=== PATIENT | male | born 1995 | race Caucasian/White ===

== ENCOUNTER 2017-12-19 08:44 | Emergency (ER) | payer OTHER ==
[2017-12-19 08:54] VITALS: BP 122/66
--- NOTE | 2017-12-19 09:03 | EDPHY ---
H & P Time Seen by Provider: 12/19/17 08:54 HPI/ROS: CHIEF COMPLAINT: Forehead laceration HISTORY OF PRESENT ILLNESS: 22-year-old immunocompetent male with no anticoagulant use, up-to-date tetanus, was at work at [employer] chopping wood when a piece of wood bounced back and impacted him on the frontal region. No loss of consciousness. No amnesia. No headache. No nausea or vomiting. No midline C-spine pain. No diplopia. SOCIAL HISTORY: denies alcohol use at time of incident PHYSICAL EXAM 1) GENERAL: Well-developed, well-nourished, alert and oriented. Appears to be in no acute distress. Answering questions appropriately. 2) HEAD: Normocephalic, linear, superficial, transverse 3 cm laceration. No foreign body visualized or palpated. 3) HEENT: Pupils equal, round, reactive to light bilaterally. Negative [place]. Nasopharynx, oropharynx, clear. No deformity or angulation of nose. No septal hematoma. No rhinorrhea. No oral trauma. Ears bilaterally with normal tympanic membranes. No hemotympanum. No fluid or blood in the external auditory canal. No raccoon eyes. No Ro sign. Teeth are normally aligned with no gross malocclusion, TMJ bilaterally nontender, facial bones nontender including the zygomatic arch, maxilla mandible. 4) NECK: No cervical collar is on. Posterior cervical spine is nontender, no stepoff, no effusion. Full range of motion which does not elicit any midline cervical spine pain, no posterior midline tenderness, no step-off. Smoking Status: Current every day smoker Constitutional: Initial Vital Signs Temperature (C) 36.6 C 12/19/17 08:51 Heart Rate 77 12/19/17 08:51 Respiratory Rate 16 12/19/17 08:51 Blood Pressure 122/66 H 12/19/17 08:51 O2 Sat (%) 96 12/19/17 08:51 O2 Delivery Mode Room Air Allergies/Adverse Reactions: No Known Allergies Allergy (Unverified 12/19/17 08:50) Home Medications: Medication Instructions Recorded NK [No Known Home Meds] 12/19/17 MDM/Departure - MDM Procedures: Procedure: Laceration repair with tissue adhesive Verbal consent was obtained from the patient. The 3 cm laceration on the forehead was anesthetized with 1% lidocaine with epinephrine.. The wound was scrubbed and explored to its base with a gloved finger. No foreign body seen, no foreign bodies palpated. There were no deep structures involved. The wound was repaired with tissue adhesive. The procedure was performed by myself. Patient has been informed that scarring will occur, although every effort has been made to minimize this. ED Course/Re-evaluation: Negative [place] head and C-spine decision making rules. Primary wound closure in the ER. No indication for imaging at this time. Usual and customary wound and head injury precautions instructions provided. I saw this patient independently based on established practice protocols. Care of patient under supervision of primary Supervising physician Dr Justin Olvera . - Depart Disposition: Home, Routine, Self-Care Clinical Impression: Head injury due to trauma Qualifiers: Encounter type: initial encounter Qualified Code(s): S09.90XA - Unspecified injury of head, initial encounter Laceration of forehead Qualifiers: Encounter type: initial encounter Qualified Code(s): S01.81XA - Laceration without foreign body of other part of head, initial encounter Condition: Good Instructions: Laceration (ED), Skin Adhesive Care (ED) Additional Instructions: Return to the ER if you develop redness, swelling, discharge, warmth to the wound, , or any other symptoms that concern you. ALTHOUGH THERE IS NO EVIDENCE OF SERIOUS HEAD INJURY AT THIS TIME, DELAYED SIGNS CAN APPEAR 24 TO 48 HOURS AFTER INJURY. PLEASE RETURN TO THE EMERGENCY DEPARTMENT (ED) IMMEDIATELY IF YOU HAVE INCREASED HEADACHE, PERSISTENT HEADACHE , VOMITING, WEAKNESS, CONFUSION OR VISUAL PROBLEMS. WE RECOMMEND THAT YOU DO NOT RESUME CONTACT SPORTS OR ACTIVITIES THAT TAKE COORDINATION OR BALANCE SUCH SKIING OR RIDING A BICYCLE UNTIL CLEARED TO DO SO BY YOUR DOCTOR OR BY A NEUROLOGIST. Stand Alone Forms: Work Comp Follow Up Referrals: Follow-up, with your work comp provider in 2 days [Other] - As per Instructions
[2017-12-19] MEDS ORDERED: SKIN ADHESIVE (DERMABOND) 1 EACH TP ONE (09:16)
== END 2017-12-19 09:37 | disposition home or self-care (01) ==
PROC: 0HQ1XZZ Repair Face Skin, External Approach (ICD-10-PCS; principal; 2017-12-19)
DX: S01.81XA Laceration without foreign body of other part of head, initial encounter (principal); F17.200 Nicotine dependence, unspecified, uncomplicated; W26.8XXA Contact with other sharp object(s), not elsewhere classified, initial encounter; Y92.511 Restaurant or cafe as the place of occurrence of the external cause; Y99.0 Civilian activity done for income or pay; Y93.89 Activity, other specified